=== PATIENT | female | born 1995 | race Caucasian/White ===

== ENCOUNTER 2016-12-28 12:42 | Emergency (ER) | payer OTHER ==
[~2016-12-28] VITALS: Ht 172.7 cm; Wt 66.8 kg
[2016-12-28 12:55] VITALS: TEMP 36.5; Ht 172.7 cm; Wt 66.8 kg
--- NOTE | 2016-12-28 12:57 | EMERGENCY ROOM VISIT NOTE ---
History Report prepared by Sashaibedison: Marina Colon Under the Supervision of: Dr. Lupillo Kenney M.D. First contact with patient: 12:44 Chief Complaint: ALCOHOL OVERDOSE Stated Complaint: ALCOHOL OVERDOSE History of Present Illness The patient is a 21 year old female who presents to the Emergency Room with complaints of an episode of alcohol overdose beginning just CRANE CHASER. Per EMS, the patient was vomiting in an Uber and the [employer] police found her. The patient was unresponsive and was brought to the ED. HPI limited secondary to intoxication. Source of History: EMS History Limited By: intoxication Onset: just CRANE CHASER Position: other (global) Quality: other (alcohol intoxication) Timing: other (episode) Associated Symptoms: + vomiting Review of Systems See HPI for pertinent positives & negatives. ROS limited secondary to intoxication. Past Medical & Surgical Medical Problems: (1) No Known Active Medical Problems Family History No pertinent family history stated. Social History Marital Status: single Housing Status: lives with roommate Occupation Status: student Current/Historical Medications Unable to Obtain Active Prescriptions or Reported Meds Physical Exam Vital Signs Date Time Temp Pulse Resp B/P (MAP) Pulse Ox O2 Delivery O2 Flow Rate FiO2 12/28/16 14:36 70 113/71 97 Room Air 12/28/16 13:09 76 12/28/16 13:02 98 Room Air 12/28/16 12:55 36.5 82 16 102/69 98 Room Air Physical Exam Vital signs reviewed. General: Odor of EtOH in the breath, disheveled 21-year-old female. No signs of trauma. HEENT: Mild scleral injection bilaterally, PERRLA, neck supple, dry mucous membranes. Cardiovascular: Regular rate and rhythm, no extra sounds. Pulmonary: Clear to auscultation bilaterally, normal work of breathing. Abdomen: Soft, nontender, nondistended, positive bowel sounds. Musculoskeletal: Upper and lower extremities atraumatic, no peripheral edema Skin: Warm, dry, no rash. Atraumatic. Neurologic: Patient is currently nonverbal. Medical Decision & Procedures Laboratory Results 12/28/16 13:40 Test 12/28/16 13:11 12/28/16 13:40 Bedside Glucose 102 mg/dl (70-90) Anion Gap 9.0 mmol/L (3-11) Est Creatinine Clear Calc Drug Dose 146.0 ml/min Estimated GFR () > 150.0 Estimated GFR (Non- 129.8 BUN/Creatinine Ratio 15.6 (10-20) Calcium Level 8.2 mg/dl (8.5-10.1) Human Chorionic Gonadotropin, Qual NEG (NEG) Ethyl Alcohol mg/dL 269.0 mg/dl (0-3) Labs reviewed by ED physician. ED Course 1244: Past medical records reviewed. The patient was evaluated in room B11A. A complete history and physical examination was performed. 1347: I reevaluated the patient and spoke to her mother. 1440: The patient's mother would like to take her home. 1446: Upon reexamination the patient is doing well. I discussed results and treatment plan with the patient and her mother. They verbalize agreement and understanding. The patient is ready for discharge. Medical Decision The differential diagnosis of the patient's presentation includes alcohol ingestion, illicit drug use, trauma, and dehydration. This is a 21-year-old female who began vomiting in an [employer]. [employer] truck driver pulled over and turned the patient over to the police. The please brought to the patient to the emergency department. She was placed in a prone position. Aspiration precautions were taken. The patient was placed on a monitor. She was frequently reassessed. The patient's alcohol level was obtained after some time. The patient's mother requested that the patient be discharged into her care. I recommended that the patient stay for further monitoring however mother is aware for the risks. Medication Reconcilliation Current Medication List: was personally reviewed by me Blood Pressure Screening Patient's blood pressure: Normal blood pressure Blood pressure disposition: Did not require urgent referral Impression Primary Impression: Alcohol intoxication Scribe Attestation The scribe's documentation has been prepared under my direction and personally reviewed by me in its entirety. I confirm that the note above accurately reflects all work, treatment, procedures, and medical decision making performed by me. Departure Information Dispostion Home / Self-Care Prescriptions Unable to Obtain Active Prescriptions or Reported Meds Forms HOME CARE DOCUMENTATION FORM, IMPORTANT VISIT INFORMATION Patient Instructions ED Alcohol Intoxication, [facility]: [employer] Students and Alcohol Related Visits, My [facility] Additional Instructions HENRI = .270 @ 1340 Sober @ approx 2340 You have been examined and treated today on an emergency basis only. This is not a substitute for, or an effort to provide, complete comprehensive medical care. It is impossible to recognize and treat all injuries or illnesses in a single emergency department visit. It is therefore important that you follow up closely with [facility]. Call as soon as possible for an appointment. Thank you for your time and consideration. I look forward to speaking with you again soon. Please don't hesitate to call us if you have any questions. Problem Qualifiers Primary Impression: Alcohol intoxication Complication of substance-induced condition: uncomplicated Qualified Codes: F10.920 - Alcohol use, unspecified with intoxication, uncomplicated
[2016-12-28 13:02] VITALS: O2SAT 98
[2016-12-28 14:17] LABS: PREG INTERNAL NEGATIVE QC NEG CLEAR BACKGROUND; PREG INTERNAL POSITIVE QC POS CONTROL LINE
[2016-12-28 14:18] LABS: BLOOD UREA NITROGEN 10 mg/dl (7-18); BUN/CREATININE RATIO 15.6 (10-20); CALCIUM 8.2 mg/dl (8.5-10.1); CARBON DIOXIDE 24 mmol/L (21-32); CHLORIDE 110 mmol/L (98-107); CREATININE 0.62 mg/dl (0.60-1.20); GLUCOSE 104 mg/dl (70-99); POTASSIUM 3.3 mmol/L (3.5-5.1); SODIUM 143 mmol/L (136-145)
[2016-12-28 14:36] VITALS: BP 113/71; PULSE 70; O2SAT 97
== END 2016-12-28 14:58 | disposition home or self-care (01) ==
LOC: C.EDB 12:44
DX: F10.920 Alcohol use, unspecified with intoxication, uncomplicated (principal); Y90.8 Blood alcohol level of 240 mg/100 ml or more

== ENCOUNTER → 2017-07-07 | Outpatient (CLI) | payer OTHER ==
[~2017-07-07] MED LIST: GADAVIST IV PRN
--- NOTE | 2017-07-07 11:59 | DIAGNOSTIC IMAGING REPORT ---
MRI OF THE BRAIN COMBO CLINICAL HISTORY: Depression. Lyme disease. COMPARISON STUDY: No priors. TECHNIQUE: MRI of the brain was performed utilizing various T1 and T2-weighted sequences in the axial, sagittal, and coronal planes. Contrast-enhanced sequences were acquired following the administration of 7 cc of Gadavist. FINDINGS: Brain parenchyma: The brain parenchyma is normal in appearance. There is no hemorrhage or mass effect. There is no restricted diffusion to suggest acute ischemia. No enhancing mass lesion is identified on the postcontrast images. Sosa-white matter differentiation is preserved. No extra-axial fluid collection is seen. The cerebellar tonsils are normal in configuration. Ventricles, sulci, and cisterns: Normal in configuration. Pituitary and sella: Unremarkable. Intracranial vasculature: Normal flow voids are maintained at the skull base. Orbits: The bony orbits are grossly intact. Orbital contents are normal in appearance. Sinuses and mastoids: Clear. Calvarium: Unremarkable. Cervical cord: Partially visualized cervical spinal cord is normal in morphology and signal intensity. IMPRESSION: No acute intracranial abnormality. Electronically signed by: Jeff Phelps M.D. 07/07/2017 11:58 AM Dictated Date/Time: 07/07/2017 11:55 AM
== END | disposition home or self-care (01) ==
LOC: C.MRI 10:59
PROVIDERS: ATTEND Nurse Practitioner Family
DX: F33.1 Major depressive disorder, recurrent, moderate (principal); A69.20 Lyme disease, unspecified; R41.840 Attention and concentration deficit